=== PATIENT | female | born 1975 | race Hispanic/Latino ===

== ENCOUNTER 2017-05-14 22:57 | Emergency (ER) | payer BC, OTHER ==
[2017-05-14 23:29] LABS: #Basophils 0.1 thou/uL (0.0-0.2); #Eosinphils 0.1 thou/uL (0.0-0.7); #Lymphocytes 2.3 thou/uL (1.20-3.40); #Monocytes 0.6 thou/uL (0.11-0.59); %Basophils 0.8 % (0.0-1.0); %Eosinophils 0.8 % (0.0-10.0); %Lymphocytes 18.8 % (21.0-51.0); %Neutrophils 74.5 % (42.0-75.0); Hemoglobin 14.8 g/dL (12.0-16.0); Mean Corpuscular HGB CONC 33.9 g/dL (32.0-36.0); Mean Corpuscular Hemoglobin 32.3 pg (27.0-31.0); Mean Corpuscular Volume 95.2 fl (81.0-99.0); Mean Platelet Volume 7.2 fL (7.4-10.4); Platelet Count 294 thou/uL (130-400); RBC Distribution Width 10.9 % (11.5-14.5); White Blood Cell (WBC) Count 12.1 thou/uL (4.8-10.8)
[2017-05-14 23:50] LABS: ALT (SGPT) 23 U/L (8-55); AST (SGOT) 12 U/L (5-34); Alkaline Phosphatase 58 U/L (40-150); Anion Gap 14 mmol/L (10-20); BUN (Urea Nitrogen) 16 mg/dL (7.0-18.7); Bilirubin, Total 0.2 mg/dL (0.2-1.2); CK (CPK) 70 U/L (29-168); Calc. Creatinine Clearance 0 mL/min (70-130); Calcium 10.2 mg/dL (7.8-10.44); Carbon Dioxide 26 mmol/L (22-29); Chloride 99 mmol/L (98-107); Estimated GFR-MDRD 81; Globulin 2.7 g/dL (2.4-3.5); Glucose 118 mg/dL (70-105); Lipase 29 U/L (8-78); Potassium 3.6 mmol/L (3.5-5.1); Protein, Total 6.7 g/dL (6.0-8.3); Sodium 135 mmol/L (136-145)
--- NOTE | 2017-05-14 23:52 | RAD ---
CHEST ONE VIEW: History: Epigastric pain. Comparison: None. FINDINGS: Lungs are clear with no pneumothorax or effusion. Cardiomediastinal silhouette and mediastinal contou rs are normal. IMPRESSION: No intrathoracic abnormality. POS: [facility]
[2017-05-14 23:54] LABS: CKMB 0.8 ng/mL (0-6.6); Troponin I Less than 0.010 ng/mL (< 0.028)
[2017-05-15] MEDS ORDERED: Lidocaine Viscous Sol 2% 15 ml UD Cup ONE (00:23)
[2017-05-15] MEDS ORDERED: Mag-Al 1200 mg/1200 mg/30 ML UDCUP ONE (00:23)
[2017-05-15] MEDS ORDERED: Ondansetron HCl/PF 4 MG/2 ML Vial ONE ×2 (00:23→01:23)
[2017-05-15] MEDS ORDERED: cloNIDine 0.1 MG TAB ONE (01:03)
[2017-05-15] MEDS ORDERED: Morphine 4 MG/ML Carpuject ONE (01:20)
[2017-05-15] MEDS ORDERED: Mag-Al 1200 mg/1200 mg/30 ML UDCUP PO PRN (21:52)
[2017-05-15] MEDS ORDERED: Dextrose 5% in Water 1,000 ML IV PRN (21:52)
[2017-05-15] MEDS ORDERED: hydrALAZINE 20 MG/ML VIAL SLOW IVP PRN (21:52)
[2017-05-15] MEDS ORDERED: Promethazine HCl 25 MG/ML VIAL IM PRN (21:52)
[2017-05-15] MEDS ORDERED: Calcium Carbonate 500 MG ChewTAB PO PRN (21:52)
[2017-05-15] MEDS ORDERED: Dextrose 50% Abboject 50 ML SYRINGE SLOW IVP PRN (21:52)
[2017-05-15] MEDS ORDERED: Ondansetron HCl/PF 4 MG/2 ML Vial IVP PRN (21:52)
[2017-05-15] MEDS ORDERED: traMADol HCl 50 MG TAB PO PRN (21:52)
[2017-05-15] MEDS: Ibuprofen 600 MG TAB PO SCH (23:08)
[2017-05-15] MEDS: Acetaminophen 500 MG TAB PO SCH (23:08)
[2017-05-16 00:40] VITALS: BMI 26.2
[2017-05-16] MEDS: traMADol HCl 50 MG TAB PO PRN ×2 (05:14→07:48)
[2017-05-16] MEDS: Ibuprofen 600 MG TAB PO SCH ×2 (05:14→11:59)
[2017-05-16] MEDS: Acetaminophen 500 MG TAB PO SCH ×2 (05:15→11:59)
[2017-05-16] MEDS ORDERED: Enoxaparin Sodium 30 MG/0.3 ML SYRINGE SC SCH (09:00)
[2017-05-16] MEDS ORDERED: Famotidine 20 MG TAB PO SCH (09:00)
[2017-05-16] MEDS ORDERED: Famotidine/PF 20 mg/2ml Vial SLOW IVP SCH (09:00)
[2017-05-16 12:13] VITALS: BP 129/82; TEMP 98.3
--- NOTE | 2017-06-03 14:43 | EKG ---
Test Reason : CP Blood Pressure : / mmHG Vent. Rate : 060 BPM Atrial Rate : 060 BPM P-R Int : 134 ms QRS Dur : 086 ms QT Int : 416 ms P-R-T Axes : 044 015 020 degrees QTc Int : 416 ms Normal sinus rhythm Normal ECG T wave inversion III only Confirmed by REDDY GEORGE DO ([id number]), editor managing director ELISSA CALIX ([id number]) on 06/03/2017 2:42:59 PM Referred By: Confirmed By:REDDY GEORGE DO
== END 2017-05-15 02:58 | disposition home or self-care (01) ==
LOC: ERS 22:57 → UNDOADMOB 05-15 19:57 → SJJU 05-15 19:57 → UNDODISOB 05-16 13:46
DX: R10.13 Epigastric pain (principal); I10 Essential (primary) hypertension
CPT/HCPCS: 36415; 71045; 80053; 82550; 82553; 83690; 84484; 85025; 93005; 96374; 96375; 96376; J2270; J2405

== ENCOUNTER 2017-05-15 12:27 | Day surgery (SDC) | payer BC ==
[2017-05-15] MEDS ORDERED: Ondansetron HCl/PF 4 MG/2 ML Vial ONE ×2 (13:17→14:09)
[2017-05-15] MEDS ORDERED: Mag-Al 1200 mg/1200 mg/30 ML UDCUP ONE (13:17)
[2017-05-15] MEDS ORDERED: Famotidine 20 MG TAB ONE (13:17)
[2017-05-15] MEDS ORDERED: Lidocaine Viscous Sol 2% 15 ml UD Cup ONE (13:17)
[2017-05-15 13:36] LABS: Hemoglobin 15.2 g/dL (12.0-16.0); Mean Corpuscular HGB CONC 33.9 g/dL (32.0-36.0); Mean Corpuscular Volume 94.5 fl (81.0-99.0); Mean Platelet Volume 7.3 fL (7.4-10.4); Platelet Count 292 thou/uL (130-400); RBC Distribution Width 10.9 % (11.5-14.5); Red Blood Cell (RBC) Count 4.74 mill/uL (4.20-5.40); White Blood Cell (WBC) Count 19.2 thou/uL (4.8-10.8)
[2017-05-15 13:51] LABS: Bilirubin Negative (Negative); Blood, Urine Large (Negative); Clarity CLEAR (Clear); Glucose, Urine (Dipstick) Negative (Negative); Leukocyte Negative (Negative); Nitrite Negative (Negative); Protein, Urine (Dipstick) Trace mg/dL (Neg-Trace); Specific Gravity, Urine 1.022 (1.002-1.036); Urobilinogen 0.2 mg/dL (0.2-1.0)
[2017-05-15 13:53] LABS: Bacteria/HPF None Seen HPF (None Seen); Hyaline Casts/LPF 4-6 HYALINE CAST LPF (0-3 Hyaline); RBC/HPF 21-50 HPF (0-3); Squamous Epithelial 0-3 HPF (0-3)
[2017-05-15 13:57] LABS: ALT (SGPT) 24 U/L (8-55); AST (SGOT) 14 U/L (5-34); Albumin 4.4 g/dL (3.5-5.0); Alkaline Phosphatase 60 U/L (40-150); Anion Gap 14 mmol/L (10-20); BUN (Urea Nitrogen) 12 mg/dL (7.0-18.7); Bilirubin, Total 0.4 mg/dL (0.2-1.2); Calc. Creatinine Clearance 0 mL/min (70-130); Calcium 9.6 mg/dL (7.8-10.44); Carbon Dioxide 24 mmol/L (22-29); Chloride 99 mmol/L (98-107); Estimated GFR-MDRD 90; Globulin 2.8 g/dL (2.4-3.5); Glucose 134 mg/dL (70-105); Lipase 14 U/L (8-78); Potassium 3.7 mmol/L (3.5-5.1); Protein, Total 7.2 g/dL (6.0-8.3); Sodium 133 mmol/L (136-145)
[2017-05-15 14:00] LABS: Band 6 % (5-11); Lymphocytes 3 % (21-51); MDiff Complete? YES; Monocytes 3 % (0-10); Neutrophil 87 % (42-75); PLT Morphology Comment Appears Adequate; RBC Morphology Normal
[2017-05-15] MEDS ORDERED: Lidocaine 1% PF 5 ML VIAL ONE (14:09)
[2017-05-15] MEDS ORDERED: Ketorolac Tromethamine 30 MG/ML VIAL ONE (14:09)
[2017-05-15] MEDS ORDERED: Glycopyrrolate 0.2 MG/ML 5 ML SYRINGE ONE (14:09)
[2017-05-15] MEDS ORDERED: PROPOFOL 200 MG/20 ML VIAL ONE (14:09)
[2017-05-15] MEDS ORDERED: Dexamethasone 20 MG/5 ML VIAL ONE (14:09)
[2017-05-15] MEDS ORDERED: Morphine 4 MG/ML Carpuject ONE (14:31)
--- NOTE | 2017-05-15 14:35 | CT ---
CT OF THE ABDOMEN AND PELVIS WITH CONTRAST: Date: 05/15/17 COMPARISON: None. HISTORY: Abdominal pain with nausea, vomiting, and elevated white blood cell count. TECHNIQUE: Multiple contiguous axial images were obtained in a CT of the abdomen and pelvis with contrast. Coron al reformats were performed. FINDINGS: Gallstones are seen in the dependent aspect of the gallbladder. One of the gallstones is calcified. T here are subcentimeter hypodensities in the liver which are too small to definitely characterize but may represent cysts. The kidneys, adrenal glands, spleen, and pancreas are unremarkable. No free air, free fluid, or stran ding changes are seen in the abdomen or pelvis. The reproductive organs are unremarkable. The large and small bowel are unremarkable. The appendix is not seen as the patient has had a history of appendectomy. No abdominal or pelvic lymphadenopathy se en. The osseous structures, visualized inferior thorax, and abdominal wall soft tissues are unremarkable. IMPRESSION: 1. Cholelithiasis. 2. Likely hepatic cysts. POS: [facility]
--- NOTE | 2017-05-15 15:09 | ULT ---
RIGHT UPPER QUADRANT ABDOMINAL ULTRASOUND: Date: 05/15/17 COMPARISON: CT abdomen/pelvis dated 05/15/17. HISTORY: Right upper quadrant abdominal pain. TECHNIQUE: Multiplanar Kiran scale and color Doppler images were obtained in a right upper quadrant abdominal ult rasound. FINDINGS: The liver is normal in echogenicity without focal lesions or intrahepatic ductal dilatation. There ar e shadowing stones and sludge in the gallbladder without gallbladder wall thickening or pericholecyst ic fluid. The common bile duct is normal measuring 7.0 mm. The visualized portions of the pancreas are unremarkable. The right kidney is normal in echogenicity without hydronephrosis or calculus and measures 11.7 cm in length. IMPRESSION: Cholelithiasis. POS: [facility]
[2017-05-15] MEDS ORDERED: hydrALAZINE 20 MG/ML VIAL ONE (15:48)
[2017-05-15] MEDS ORDERED: ISOVUE-370 76%-LOCM 1 ML ONE (15:49)
[2017-05-15] MEDS ORDERED: Iothalamate Meglumine 60% 50 ML VIAL FS ONE (16:17)
[2017-05-15] MEDS ORDERED: Bupivacaine/Epinephrine 0.25% 30 ML VIAL ONE (16:17)
[2017-05-15] MEDS ORDERED: Fentanyl 100 MCG/2 ML VIAL ONE ×2 (16:23→18:32)
[2017-05-15] MEDS ORDERED: Midazolam HCl 2 mg/2 ml Vial ONE (16:46)
--- NOTE | 2017-05-15 17:09 | HP ---
DATE OF ADMISSION: 05/15/2017 HISTORY OF PRESENT ILLNESS: This is a 41-year-old woman, who presented to emergency department with recurrent epigastric right upper quadrant abdominal pain since 3 days ago. Pain was postprandial at initial onset, associated with some nausea. She received minor relief with Pepto-Bismol. Pain inten sified yesterday, as a result, the patient presented to emergency department. Following the workup, she was discharged home with analgesics. She returned today with worsening right upper quadrant abdo lela pain, this time associated with multiple episodes of nonbilious emesis and chills. She denies any fevers, however. The patient denies any diarrhea. She denies any unexplained weight loss. PAST MEDICAL HISTORY: Pertinent for hypertension. PAST SURGICAL HISTORY: Pertinent for laparoscopic appendectomy. SOCIAL HISTORY: She is . She lives independently. She is a G2, P2. She admits to occasiona l intake of ethanol in moderate amounts and denies any cigarette smoking or illicit drug abuse. She is employed with the [employer]. CURRENT MEDICATION: Lisinopril 10 mg p.o. daily. ALLERGIES: The patient denies any known drug allergies. FAMILY HISTORY: Notable for uterine carcinoma in mother, who from complications of metastatic d isease. REVIEW OF SYSTEMS: A ten-point review of systems essentially unremarkable except for as stated in pa medical history and chief complaint. PHYSICAL EXAMINATION: GENERAL: This reveals a 41-year-old normally developed woman, who is otherwise coherent and interact meri and appears stated age. The patient is alert and oriented x3, appears to be in no acute distress at the time of my evaluation. VITAL SIGNS: Include blood pressure 187/118, pulse 93, respiratory rate is 16, temperature is 98.6 d egrees Fahrenheit, oxygen saturation 98% on room air. HEENT: Reveals normocephalic and atraumatic. Pupils are equal, round, and reactive to light and acc ommodation. Extraocular muscles are intact bilaterally. She has no sclerae icterus is present. Ora l mucosa is pink and moist. No lesions are noted. NECK: Supple. No palpable lymphadenopathy or thyromegaly present. HEART: Reveals regular rate and rhythm, no murmurs or gallops auscultated. LUNGS: Clear to auscultation bilaterally. Breathing is regular and unlabored. ABDOMEN: Soft and nondistended with right upper quadrant tenderness to palpation. She has a positiv e Tiwari sign. Liver and spleen are otherwise nonpalpable below costal margins. EXTREMITIES: Reveal 2+ radial and pedal pulses bilaterally. No ankle edema is present. NEUROLOGIC: Reveals no focal deficits present. PERTINENT LABORATORY DATA: Includes CBC with 19,200 white blood cells, hemoglobin and hematocrit are stable at 15.2 and 44.8 respectively, platelet count is 292,000. Differential counts as follows, 87 % segmented neutrophils, 6 bands, 3 lymphocytes, 3 monocytes and 1 basophil. Metabolic profile: Sod ium 133, potassium is 3.7, chloride is 99, bicarbonate 24, BUN 12, creatinine is 0.72, glucose 134, t otal bilirubin is 0.4, AST and ALT are normal at 14 and 24 respectively. Alkaline phosphatase is als o normal at 60. Lipase is normal at 14. I have personally reviewed the CT scan of the abdomen and pelvis as well as the abdominal ultrasound, both of which are consistent with dilated gallbladder with multiple intraluminal gallstones. Common bile duct is dilated for this patient's age at 7 mm. There is no pericholecystic fluid or gallbladd er wall thickening present. IMPRESSION: 1. Acute cholecystitis with cholelithiasis. 2. Poorly controlled essential hypertension. PLAN: Laparoscopic cholecystectomy. The above findings and plan have been discussed with the patient. I have advised her of the risks an d benefits of the proposed surgery. Risks include, but not limited to bleeding, infection, injury to bile duct or surrounding structures. This information is given to the patient in the presence of he r nurse. The patient indicated understanding of information provided. I have answered her questions . The patient has granted consent for this admission and surgical intervention.
--- NOTE | 2017-05-15 22:28 | OP ---
DATE OF OPERATION: 05/15/2017 PREOPERATIVE DIAGNOSIS: Acute cholecystitis with cholelithiasis. POSTOPERATIVE DIAGNOSIS: Acute cholecystitis with cholelithiasis. SURGERY PERFORMED: Laparoscopic cholecystectomy. SURGEON: Ady Villanueva D.O. ANESTHESIA: General endotracheal. ESTIMATED BLOOD LOSS: 10 mL FLUIDS GIVEN: 500 mL crystalloids. SPONGE AND INSTRUMENT COUNT: Certified as correct x2. COMPLICATIONS: None apparent at the time of operation. INDICATIONS FOR PROCEDURE: A 41-year-old woman who presented with recurrent epigastric to right uppe r quadrant abdominal pain. Clinical and radiographic examination was consistent with acute cholecyst itis with cholelithiasis for which the patient was brought to the operating room for cholecystectomy. Findings are consistent with gallbladder in the usual anatomic location encased by omental adhesion s. DESCRIPTION OF PROCEDURE: Informed consent was obtained from the patient who was brought to the oper ating room and placed in supine position. Following general anesthesia, the abdomen was sterilely pr epped and draped in the usual fashion. The skin below the umbilicus was infiltrated with 0.25% Kathryn ine with epinephrine. A small curvilinear infraumbilical incision was made using an 11 scalpel. Umb ilical stalk was grasped with Soha's and elevated. Veress needle was inserted through the incision and placed in the peritoneal cavity through which the abdomen was insufflated with 3 liters of CO2 g as. Intra-abdominal pressure noted at negative 2 mmHg. Following abdominal insufflation, Veress nee dle was removed and a 5-mm trocar was introduced using a Visiport under laparoscopy. Laparoscopy con firmed proper placement of the port, no injuries to underlying structures. Additional laparoscopy re vealed gallbladder in the usual anatomic location encased by omental adhesions. There was some peric holecystic fluid also noted. Under laparoscopy, a 12-mm epigastric and two 5-mm right lateral subcos william ports were placed after the overlying skin was infiltrated with 0.25% Marcaine with epinephrine a nd appropriate incisions made. The patient was placed in reverse Trendelenburg position, rotated to her left. I introduced the [place] dissector from the epigastric port site, using this to take down omental adhesions with good hemostasis. I introduced Prestige grasper from the right lateral subcos william port grasping the fundus of the gallbladder, which was elevated cephalad. A second Prestige gras per was introduced through the right medial subcostal port grasping the Conrad's pouch, which was re tracted laterally. Cystic duct was carefully dissected free from surrounding structures and divided between clips. Two clips were applied proximally and one clip at the junction of the cystic duct and gallbladder. The cystic artery was also dissected free from surrounding structures and divided betw een clips in a similar fashion. Gallbladder itself was removed from the liver bed using cautery. Th e gallbladder was then delivered of the abdominal cavity using an EndoCatch. Gallbladder fossa was n oted with minor oozing of venous blood. Hemostasis was readily achieved using 1 x 2 inch piece of fi bula. Finding no other pathology, laparoscopy was terminated. Fascia of the epigastric port was biju sed using 0 Vicryl suture and Endo closure device under laparoscopy. Abdomen was then desufflated an d all ports and instruments removed and accounted for. Skin incisions were closed using 4-0 Monocryl suture in subcuticular fashion. Dermabond was applied over the incisions. The patient tolerated th e operation without any apparent complications and was returned to the recovery room in satisfactory condition.
--- NOTE | 2017-05-16 21:26 | DIS ---
DATE OF ADMISSION: 05/15/2017 DATE OF DISCHARGE: 05/16/2017 ADMITTING PHYSICIAN: Ady Villanueva DO DISCHARGING PHYSICIAN: Ady Villanueva DO ADMITTING DIAGNOSIS: Acute cholecystitis with cholelithiasis. DISCHARGE DIAGNOSIS: Acute cholecystitis with cholelithiasis. OPERATIONS AND PROCEDURES: Include laparoscopic cholecystectomy on 05/15/[address] Villanueva. Please see a separate dictation for the operative report. HISTORY AND HOSPITAL COURSE: A 41-year-old woman presented with recurrent epigastric to right upper quadrant abdominal pain. Diagnosis of acute cholecystitis with cholelithiasis was rendered for which the patient underwent an uneventful laparoscopic cholecystectomy yesterday. Following surgery, the patient was admitted to the surgical floor where she remained at the time of discharge. Postop day # 1, she is ambulating with minimum difficulty. The pain is adequately controlled on oral analgesics. The patient is tolerating general diet, having normal bowel and urinary function. Incisional wounds remain intact, clean, and dry. She clearly has no peritoneal signs on examination. DISCHARGE INSTRUCTIONS: The patient has been discharged home today with the following instructions: 1. She sees me in the Surgery [facility] in 2 weeks. In the interim, she is to avoid weightlifting in e xcess of 20 pounds until she has been released by me. She may not swim or soak herself in the bathtu b, however, may shower effective tomorrow. 2. She was given a prescription for tramadol 50 mg to be taken 1-2 p.o. q.6 hours p.r.n. pain. She may alternate this or take this in conjunction with Tylenol 1000 mg p.o. q.6 hours and ibuprofen 800 mg p.o. q.8 hours p.r.n. pain with food. 3. I have instructed her to resume pre-hospital medication as prescribed by her primary care physici an including lisinopril. 4. She is to follow up with her primary care physician within 1 week of this discharge as she had a transient episode of significantly elevated blood pressure preoperatively yesterday. 5. Currently, her blood pressure, however, is 129/82, pulse 67, respiratory rate 20. She has remain ed afebrile through this hospitalization with a maximum temperature of 98.6 degrees Fahrenheit. These instructions were given to the patient in the presence of her nurse. She indicates an understa nding of the information given. I have answered questions. The patient has expressed gratitude for the care and nurturing during this hospitalization and surgery.
[2017-05-19] MEDS ORDERED: traMADol HCl 50 MG TAB PO PRN (15:52)
[2017-05-19] MEDS ORDERED: Calcium Carbonate 500 MG ChewTAB PO PRN (15:52)
[2017-05-19] MEDS ORDERED: hydrALAZINE 20 MG/ML VIAL SLOW IVP PRN (15:52)
[2017-05-19] MEDS ORDERED: Dextrose 5% in Water 1,000 ML IV PRN (15:52)
[2017-05-19] MEDS ORDERED: Mag-Al 1200 mg/1200 mg/30 ML UDCUP PO PRN (15:52)
[2017-05-19] MEDS ORDERED: Promethazine HCl 25 MG/ML VIAL IM PRN (15:52)
[2017-05-19] MEDS ORDERED: Famotidine/PF 20 mg/2ml Vial SLOW IVP SCH (15:52)
[2017-05-19] MEDS ORDERED: Dextrose 50% Abboject 50 ML SYRINGE SLOW IVP PRN (15:52)
[2017-05-19] MEDS ORDERED: Ondansetron HCl/PF 4 MG/2 ML Vial IVP PRN (15:52)
[2017-05-19] MEDS ORDERED: Famotidine 20 MG TAB PO SCH (15:52)
[2017-05-19] MEDS ORDERED: Acetaminophen 500 MG TAB PO SCH (18:00)
[2017-05-19] MEDS ORDERED: traMADol HCl 50 MG TAB PO SCH (18:00)
[2017-05-19] MEDS ORDERED: Ibuprofen 600 MG TAB PO SCH (21:00)
== END 2017-05-16 13:06 | disposition home or self-care (01) ==
LOC: ERS 12:27 → SDC 15:30 → SJJU 19:57 → SDC 05-16 13:06
PROVIDERS: ATTEND Surgery
PROC: 0FT44ZZ Resection of Gallbladder, Percutaneous Endoscopic Approach (ICD-10-PCS; principal; 2017-05-15)
DX: K80.10 Calculus of gallbladder with chronic cholecystitis without obstruction (principal); I10 Essential (primary) hypertension; Z79.899 Other long term (current) drug therapy; Z91.011 Allergy to milk products; Z90.49 Acquired absence of other specified parts of digestive tract
CPT/HCPCS: 36415; 74177; 76705; 80053; 81003; 81015; 83690; 85025; 88304; 96361; 96374; 96375; J0360; J1100; J1885; J2001; J2250; J2270; J2405; J2704; J3010; Q9961

== ENCOUNTER 2019-02-26 14:59 | Outpatient (CLI) | payer BC ==
--- NOTE | 2019-03-06 11:21 | MMO ---
Bilateral MAMMO Bilat Screen [facility]. CLINICAL HISTORY: Patient is 43 years old and is seen for screening. The patient has no family history of breast cancer. The patient has no personal history of cancer. VIEWS: The views performed were: bilateral craniocaudal with tomosynthesis and bilateral mediolateral oblique with tomosynthesis. FILMS COMPARED: The present examination has been compared to prior imaging studies performed at on 01/25/2018. This study has been interpreted with the assistance of computer-aided detection. MAMMOGRAM FINDINGS: There are scattered fibroglandular densities. There are no suspicious masses, suspicious calcifications, or new areas of architectural distortion. IMPRESSION: THERE IS NO MAMMOGRAPHIC EVIDENCE OF MALIGNANCY. A ROUTINE FOLLOW-UP MAMMOGRAM IN 1 YEAR IS RECOMMENDED. THE RESULTS OF THIS EXAM WERE SENT TO THE PATIENT. ACR BI-RADS Category 1 - Negative MAMMOGRAPHY NOTE: 1. A negative mammogram report should not delay a biopsy if a dominant of clinically suspicious mass is present. 2. Approximately 10% to 15% of breast cancers are not detected by mammography. 3. Adenosis and dense breasts may obscure an underlying neoplasm. Reported by: JEANNINE HERNANDEZ MD Electonically Signed: [id number]
== END 2019-02-26 15:00 | disposition home or self-care (01) ==
LOC: BICMAMMO 14:59
PROVIDERS: ATTEND Family Medicine
DX: Z12.31 Encounter for screening mammogram for malignant neoplasm of breast (principal)
CPT/HCPCS: 77063; 77067

== ENCOUNTER 2019-10-09 16:12 | Outpatient (CLI) | payer BC ==
--- NOTE | 2019-10-09 16:24 | RAD ---
Left big toe 3 views HISTORY: Pain. FINDINGS: Joint spaces are preserved. No acute fracture, dislocation, or aggressive osseous erosions, or soft tissue gas evident. IMPRESSION : No abnormalities are demonstrated.
== END 2019-10-09 16:13 | disposition home or self-care (01) ==
LOC: BICRAD 16:12
PROVIDERS: ATTEND Family Medicine
DX: M79.675 Pain in left toe(s) (principal)

== ENCOUNTER 2022-05-12 11:49 | Outpatient (CLI) | payer BC | END 2022-05-12 11:50 | disposition home or self-care (01) | LOC: BICMAMMO 11:49 | PROVIDERS: ATTEND Family Medicine | DX: Z12.31 Encounter for screening mammogram for malignant neoplasm of breast (principal) | CPT/HCPCS: 77063; 77067 ==

== ENCOUNTER 2023-06-01 15:49 | Outpatient (CLI) | payer BC | END 2023-06-01 15:50 | disposition home or self-care (01) | LOC: BICMAMMO 15:49 | PROVIDERS: ATTEND Family Medicine | DX: Z12.31 Encounter for screening mammogram for malignant neoplasm of breast (principal); Z80.3 Family history of malignant neoplasm of breast | CPT/HCPCS: 77063; 77067 ==

== ENCOUNTER 2024-06-13 12:40 | Outpatient (CLI) | payer BC | END 2024-06-13 12:41 | disposition home or self-care (01) | LOC: BICMAMMO 12:40 | PROVIDERS: ATTEND Family Medicine | DX: Z13.21 Encounter for screening for nutritional disorder (principal); Z80.3 Family history of malignant neoplasm of breast | CPT/HCPCS: 77063; 77067 ==